=== PATIENT | female | born 1935 | race Two or more races ===

== ENCOUNTER 2018-12-08 04:25 | Inpatient (IN) | payer MEDICARE ==
[2018-12-08] VITALS (28 sets, daily range): BP systolic 85–110; BP diastolic 53–70
[~2018-12-08] VITALS: Ht 160 cm; Wt 44.9 kg
--- NOTE | 2018-12-08 04:28 | NUR ---
PT BIBRA FOR SOB FROM [facility]. PER EMS, PT WAS SATURATING IN THE 70S AND WAS PUT ON A NON-REBREATHER AND TRANSPORTED. PT AXO2. PT PUT ON THE STEAMER GUM CANDY AND PULSE OX. PT SATURATION 99% ON NON-REBREATHER. PT TACHYPNIC AND DYSPNIC. PT TACHYCARDIC ON THE MONITOR.
--- NOTE | 2018-12-08 04:29 | NUR ---
ER MD AND RT AT BEDSIDE.
--- NOTE | 2018-12-08 04:35 | NUR ---
PT REC'D ON NRB MASK 15LPM. PT PLACED ON BIPAP PER DR WATKINS REQUEST. ALARMS ARE SET AND AUDIBLE. BIPAP PLUGGED INTO RED OUTLET. AMBU BAG BEDSIDE. ABG TO BE TAKEN IN 30 MINUTES Addendum: 12/08/18 at 0513 by EMBER MONROY RT Amended: Links added.
--- NOTE | 2018-12-08 04:55 | NUR ---
EKG AT BEDSIDE.
--- NOTE | 2018-12-08 04:55 | NUR ---
ADULT HEALTH CLINICAL NURSE SPECIALIST AT BEDSIDE.
--- NOTE | 2018-12-08 05:05 | NUR ---
XRAY AT BEDSIDE.
[2018-12-08 05:11] LABS: BASOPHILS % (AUTO) 0.2 % (0.0-2.0); HEMATOCRIT 42 % (33-45); HEMOGLOBIN 12.7 g/dL (11.5-14.8); LYMPHOCYTES # (AUTO) 0.2 /CMM (0.8-4.8); LYMPHOCYTES % (AUTO) 1.4 % (20.0-44.0); MEAN CORPUSCULAR HGB CONC 30 g/dl (31.0-36.0); MEAN CORPUSCULAR VOLUME 94 fL (82-100); MONOCYTES # (AUTO) 0.9 /CMM (0.1-1.30); MONOCYTES % (AUTO) 5.3 % (2.0-12.0); NEUTROPHILS # (AUTO) 15.6 /CMM (1.8-8.9); NEUTROPHILS % (AUTO) 93.1 % (43.0-81.0); PLATELET COUNT (AUTO) 150 /CMM (150-450); RED BLOOD CELL COUNT(AUTO) 4.46 MIL/uL (4.0-5.2); WHITE BLOOD COUNT (AUTO) 16.8 K/uL (4.3-11.0)
[2018-12-08] MEDS ORDERED: CEFEPIME 1 GM VIAL ONE (05:23)
[2018-12-08 05:27] LABS: ALANINE AMINOTRANSFERASE 26 U/L (12-78); ALBUMIN 2.9 g/dL (3.4-5.0); ALKALINE PHOSPHATASE 92 U/L (46-116); ASPARTATE AMINOTRANSFERASE 21 U/L (15-37); BILIRUBIN,DIRECT 0.2 mg/dL (0.0-0.2); BILIRUBIN,TOTAL 0.8 mg/dL (0.2-1.0); CHLORIDE 108 mmol/L (98-107); CREATININE 0.8 mg/dL (0.6-1.3); GLUCOSE 129 mg/dL (74-106); POTASSIUM 4.1 mmol/L (3.5-5.1); SODIUM SERUM 148 mmol/L (136-145); TOTAL PROTEIN, SERUM 6.6 g/dL (6.4-8.2); UREA NITROGEN, BLOOD 43 mg/dL (7-18)
[2018-12-08 05:30] LABS: CARBON DIOXIDE 44 mmol/L (21-32)
[2018-12-08] MEDS ORDERED: VANCOMYCIN 1 GM in IV D5W 250 ML IV ONE (05:30)
[2018-12-08] MEDS ORDERED: CEFEPIME 1 GM in IV D5W 50 ML IV ONE (05:30)
[2018-12-08] MEDS ORDERED: methylPREDNISolone SOD SUCC 125 MG/2ML VIAL IV ONE (05:30)
[2018-12-08] MEDS ORDERED: methylPREDNISolone SOD SUCC 40 MG/ML VIAL ONE (05:34)
[2018-12-08 05:36] LABS: ABG BASE EXCESS 7.6 mmol/L; ABG OXYGEN SATURATION 99.3 % (92.0-98.5); ABG PCO2 93.1 mmHg (35.0-45.0); ABG PH 7.236 (7.350-7.450); ABG PO2 358.8 mmHg (75.0-100.0); AaDO2 261.1 mmHg; MetHb 0.6 % (0.0-1.5); O2Hb 97.7 % (94.0-97.0); SITE, ABG Right Brachial
--- NOTE | 2018-12-08 05:40 | NUR ---
bipap changes per charo and dr rooney request Addendum: 12/08/18 at 0545 by EMBER MONROY RT Amended: Links added.
[2018-12-08 05:47] LABS: APPEARANCE,URINE Slightly Cloudy (CLEAR); BILIRUBIN,URINE Negative (NEGATIVE); BLOOD, URINE Negative Ery/uL (NEGATIVE); COLOR,URINE Amber (YELLOW); KETONES,URINE Negative (NEGATIVE); LEUKOCYTE ESTERASE ,URINE Negative (NEGATIVE); NITRITE, URINE Negative (NEGATIVE); PROTEIN,URINE 100 mg/dl (NEGATIVE); UGLUCOSE Negative (NEGATIVE); UROBILINOGEN,URINE 0.2 EU/dL (0.2)
[2018-12-08] MEDS ORDERED: ASPI-1169 PO (05:56)
[2018-12-08] MEDS ORDERED: INSU100C10 SQ (05:56)
[2018-12-08] MEDS ORDERED: ACET250T9 PO (05:56)
[2018-12-08] MEDS ORDERED: LEVO25TA7 PO (05:56)
[2018-12-08] MEDS ORDERED: MAGN400T6 PO (05:56)
[2018-12-08] MEDS ORDERED: MELA3TAB70 PO (05:56)
[2018-12-08] MEDS ORDERED: CYAN50008 PO (05:56)
[2018-12-08] MEDS ORDERED: ATOR10TA PO (05:56)
[2018-12-08] MEDS ORDERED: BLOO-697 IN (05:56)
[2018-12-08] MEDS ORDERED: PRED5TAB48 PO ×2 (05:56)
[2018-12-08] MEDS ORDERED: POTA20TA83 PO (05:56)
[2018-12-08] MEDS ORDERED: FURO-144 PO (05:56)
[2018-12-08] MEDS ORDERED: ALEN70TA3 PO (05:56)
[2018-12-08] MEDS ORDERED: IPRA3AMP23 IH (05:56)
[2018-12-08] MEDS ORDERED: VANCOMYCIN 1 GM VIAL ONE (05:57)
[2018-12-08] MEDS ORDERED: ASPIRIN 300 MG/SUPP.RECT RC ONE ×2 (05:58→06:00)
[2018-12-08] MEDS ORDERED: IV NS 0.9% 1,000 ML BAG IV ONE (06:00)
--- NOTE | 2018-12-08 06:27 | NUR ---
RT AT BEDSIDE FOR ABG.
[2018-12-08 06:33] LABS: ABG BASE EXCESS 10.2 mmol/L; ABG OXYGEN SATURATION 92.7 % (92.0-98.5); ABG PCO2 78.6 mmHg (35.0-45.0); ABG PH 7.319 (7.350-7.450); ABG PO2 74.7 mmHg (75.0-100.0); AaDO2 120.1 mmHg; COHb 1.1 % (0.5-1.5); MetHb 0.5 % (0.0-1.5); O2Hb 91.2 % (94.0-97.0); SITE, ABG Right Brachial; VENT MODE, BG bipap 22/5 RR20 40%
--- NOTE | 2018-12-08 06:41 | NUR ---
PT RESTING IN BED, EASILY AROUSABLE. TOLERATING BIPAP WELL, NAD NOTED. WILL CONTINUE TO MONITOR.
[2018-12-08 06:51] LABS: BACTERIA,URINE Few /HPF (None Seen); RBC,URINE 0-2 /HPF (0-2)
[2018-12-08 06:52] LABS: SQUAMOUS EPITHELIAL CELL,UR Few /HPF (None Seen); YEAST,URINE Rare /HPF (None Seen)
[2018-12-08] MEDS: LEVOTHYROXINE SODIUM 25 MCG TABLET PO SCH (07:30)
[2018-12-08] MEDS ORDERED: ONDANSETRON HCL/PF 4 MG/2 ML VIAL IVP PRN (07:30)
[2018-12-08] MEDS ORDERED: DEXTROSE 50%-WATER 50 ML DISP.SYRIN IV PRN (07:30)
[2018-12-08] MEDS: BLOOD SUGAR DIAGNOSTIC 1 EACH STRIP IN SCH ×4 (07:30→21:54)
[2018-12-08] MEDS ORDERED: Z GUARD REMEDY 2 OZ OINT TP PRN (07:30)
[2018-12-08] MEDS ORDERED: MORPHINE SULFATE INJ 2 MG/ML DISP.SYRIN IV PRN (07:30)
--- NOTE | 2018-12-08 07:39 | NUR ---
REPORT RECEIVED FROM CALLIE ALFARO FOR SOBEIDA
--- NOTE | 2018-12-08 07:40 | NUR ---
PT RESTING IN BED, EASILY AROUSABLE. TOLERATING BIPAP WELL, NAD NOTED. KEPT WARM AND COMFORTABLE. WILL CONTINUE TO MONITOR. AWAITING BED AVAILABILITY IN ICU.
[2018-12-08] MEDS: POTASSIUM CHLORIDE 20 MEQ TAB.PRT.SR PO SCH ×2 (09:00→16:34)
[2018-12-08] MEDS: ASPIRIN 81 MG TAB.CHEW PO SCH (09:00)
[2018-12-08] MEDS: acetaZOLAMIDE 250 MG TABLET PO SCH (09:00)
[2018-12-08] MEDS: MAGNESIUM OXIDE 400 MG TABLET PO SCH ×2 (09:00→16:34)
--- NOTE | 2018-12-08 11:02 | NUR ---
REPORT GIVEN TO REINA ALFARO OF ICU
[2018-12-08] MEDS ORDERED: FEE PK DOSING 1 MIN EA MC ONE (11:32)
--- NOTE | 2018-12-08 11:38 | NUR ---
RT TRANSFERRED PT TO ICU ON NC 6L PLACED BACK ON BIPAP CONT SETTING MEPILEX PLACED NO RESP DISTRESS WILL CONT TO MONITOR Addendum: 12/08/18 at 1140 by TARYN FINLEY RT Amended: Links added.
[2018-12-08] MEDS ORDERED: Medication Not On Formulary EA (Ipratropium/Albuterol Sulfate (Duoneb 2.5-0.5 Mg/3 Ml So IH SCH (12:00)
[2018-12-08] MEDS ORDERED: PIPERACILLIN /TAZOBACTAM 3.375 G in IV D5W 50 ML IV ONE (12:00)
--- NOTE | 2018-12-08 12:00 | NUR ---
PO meds not given, pt is lethargic and on bipap.
[2018-12-08] MEDS: PANTOPRAZOLE 40 MG VIAL IV SCH (12:04)
--- NOTE | 2018-12-08 13:04 | NUR ---
received pt from ER, s/p Acute Respiratory failure s/t PNA and COPD, alert, follows commands, fatigued, V pacing, on bipap at 40% fio2, sat well, lungs partially congested, no edema, v/s stable, no pain, pt cleaned, changed and repositioned, son at the bedside.
[2018-12-08] MEDS: methylPREDNISolone SOD SUCC 125 MG/2ML VIAL IV SCH ×2 (14:16→21:00)
[2018-12-08] MEDS: IV D5/ 0.9% NACL 1,000 ML IV PRN (14:16)
[2018-12-08] MEDS: IPRATROPIUM NEB FS 0.5 MG/2.5 ML AMPUL.NEB NEB SCH ×2 (14:53→19:54)
--- NOTE | 2018-12-08 16:23 | NUR ---
pt is resting in the bed, alert, follows commands, ST, on bipap at 40% fio2, sat well, OK urine output, one BM, v/s stable, no pain, pt cleaned, changed and repositioned q2hrs.
[2018-12-08] MEDS: ALBUTEROL FS 2.5 MG/3 ML VIAL.NEB NEB SCH ×2 (17:18→19:54)
[2018-12-08] MEDS: VANCOMYCIN 500 MG in IV D5W 100 ML IV SCH (17:21)
[2018-12-08] MEDS: PIPERACILLIN /TAZOBACTAM 3.375 G in IV D5W 100 ML IV SCH (20:00)
[2018-12-08] MEDS ORDERED: IV NS 0.9% 250 ML IV ONE (20:00)
--- NOTE | 2018-12-08 20:00 | NUR ---
Received patient awake alert hard of hearing.Follows simple commands.Dx:Acute Respiratory Failure,PNA,COPD,NSTEMI,CHF.Respiration even and unlabored.On BIPAP with settings well tolerated.SPO2 100%.V-paced.Normotensive.IVF infusing to left hand site intact.Patient turned and repositioned offloading pressure points.Call light within easy reach.
--- NOTE | 2018-12-08 21:00 | NUR ---
Patient son Espinoza visiting.He said patient has a pair of hearing aids.Look into patient belongings but missing only the batteries in there.Per patient belonging list reflected with 2 hearing aids. Per Espinoza his brother took it home as instructed by day shift RNDexter and will bring in AM.
[2018-12-08] MEDS: ENOXAPARIN SODIUM 40 MG/0.4 ML DISP.SYRIN SQ SCH (21:01)
[2018-12-08] MEDS: ATORVASTATIN 10 MG TABLET PO SCH (21:38)
[2018-12-08] MEDS: INSULIN REGULAR, HUMAN 100 UNIT/ML 3 ML VIAL SQ PRN (21:58)
[2018-12-09] VITALS (40 sets, daily range): BP systolic 91–140; BP diastolic 45–74
--- NOTE | 2018-12-09 | NUR ---
Patient incontinent of stool.Perineal care and bed bath rendered.All linens changed.Turned and repositioned.
[2018-12-09] MEDS: IPRATROPIUM NEB FS 0.5 MG/2.5 ML AMPUL.NEB NEB SCH ×4 (00:41→19:44)
[2018-12-09] MEDS: ALBUTEROL FS 2.5 MG/3 ML VIAL.NEB NEB SCH ×4 (00:41→19:44)
[2018-12-09] MEDS: IV D5/ 0.9% NACL 1,000 ML IV PRN (03:15)
[2018-12-09] MEDS: PIPERACILLIN /TAZOBACTAM 3.375 G in IV D5W 100 ML IV SCH ×3 (04:00→20:14)
[2018-12-09 05:04] LABS: CALCIUM, SERUM 7.7 mg/dL (8.5-10.1); CARBON DIOXIDE 39 mmol/L (21-32); CHLORIDE 113 mmol/L (98-107); CREATININE 0.7 mg/dL (0.6-1.3); GLUCOSE 181 mg/dL (74-106); SODIUM SERUM 152 mmol/L (136-145); UREA NITROGEN, BLOOD 27 mg/dL (7-18)
[2018-12-09] MEDS: methylPREDNISolone SOD SUCC 125 MG/2ML VIAL IV SCH ×3 (05:26→21:38)
[2018-12-09] MEDS: VANCOMYCIN 500 MG in IV D5W 100 ML IV SCH ×2 (05:30→17:06)
--- NOTE | 2018-12-09 06:45 | NUR ---
Patient resting.VS remains stable.V-paced.Tolerating BIPAP.Denies pain.No distress noted. All due medications administered.Turned and repositioned.FSBS checked coverage given per SS.Will endorse to day shift RN for continuity of care.
[2018-12-09] MEDS: LEVOTHYROXINE SODIUM 25 MCG TABLET PO SCH (07:37)
[2018-12-09] MEDS: BLOOD SUGAR DIAGNOSTIC 1 EACH STRIP IN SCH ×4 (07:55→21:37)
[2018-12-09] MEDS: INSULIN REGULAR, HUMAN 100 UNIT/ML 3 ML VIAL SQ PRN ×2 (07:58→16:53)
[2018-12-09] MEDS: PANTOPRAZOLE 40 MG VIAL IV SCH (08:14)
[2018-12-09] MEDS: ASPIRIN 81 MG TAB.CHEW PO SCH (08:14)
[2018-12-09] MEDS: MAGNESIUM OXIDE 400 MG TABLET PO SCH ×2 (08:14→16:13)
[2018-12-09] MEDS: POTASSIUM CHLORIDE 20 MEQ TAB.PRT.SR PO SCH ×2 (08:14→16:13)
[2018-12-09] MEDS: acetaZOLAMIDE 250 MG TABLET PO SCH (08:14)
[2018-12-09 08:39] LABS: ABG BASE EXCESS 3.8 mmol/L; ABG OXYGEN SATURATION 94.2 % (92.0-98.5); ABG PCO2 63.4 mmHg (35.0-45.0); ABG PH 7.312 (7.350-7.450); ABG PO2 80.2 mmHg (75.0-100.0); AaDO2 59.2 mmHg; COHb 0.9 % (0.5-1.5); MetHb 0.7 % (0.0-1.5); O2Hb 92.7 % (94.0-97.0); SITE, ABG Right Radial; VENT MODE, BG NC 3L
--- NOTE | 2018-12-09 08:47 | NUR ---
received pt from shift stacker, alert, follows commands, ST, tolerates diet, f/c OK output, off of bipap since 0800, sat well, v/s stable, no pain, pt turned and repositioned.
--- NOTE | 2018-12-09 09:41 | NUR ---
RT NOTE RECEIVED PT ON BIPAP. PT PLACED ON NC AT 3L FLOW BY REINA ALFARO. PT IS AWAKE AND ALERT. NO DISTRESS NOTED AT MOMENT. AMBU BAG AT BED SIDE. WILL CONTINUE TO MONITOR. Addendum: 12/09/18 at 0943 by ILENE PENA RT Amended: Links added.
[2018-12-09] MEDS ORDERED: IV 1/2NS 1000 ML 1,000 ML IV PRN (12:30)
[2018-12-09] MEDS: GLUCERNA SHAKE 237 ML CAN PO SCH ×2 (15:58→17:11)
--- NOTE | 2018-12-09 16:09 | NUR ---
pt is resting in the bed, alert, follows commands, SR, ST, on 4L 02 sat well, v/s stable, no pain, pt cleaned, changed and repositioned q2hrs.
[2018-12-09] MEDS: ATORVASTATIN 10 MG TABLET PO SCH (21:38)
[2018-12-09] MEDS: ENOXAPARIN SODIUM 40 MG/0.4 ML DISP.SYRIN SQ SCH (21:42)
--- NOTE | 2018-12-09 22:30 | NUR ---
PLACED ON BIPAP DUE TO LOW SATS
[2018-12-10] VITALS (32 sets, daily range): BP systolic 93–130; BP diastolic 53–71
[2018-12-10] MEDS: IPRATROPIUM NEB FS 0.5 MG/2.5 ML AMPUL.NEB NEB SCH ×4 (01:02→18:31)
[2018-12-10] MEDS: ALBUTEROL FS 2.5 MG/3 ML VIAL.NEB NEB SCH ×4 (01:02→18:31)
--- NOTE | 2018-12-10 01:31 | NUR ---
INFORMED OF SBP 75, ORDERS OBTAINED
[2018-12-10] MEDS ORDERED: PHENYLEPHRINE 40 MG in IV D5W 250 ML IV PRN ×4 (02:00)
[2018-12-10] MEDS ORDERED: IV NS 0.9% 1,000 ML BAG IV ONE (02:00)
--- NOTE | 2018-12-10 02:06 | NUR ---
INFORMED OF NA BEING 152, STATED OKAY TO GIVE NS BOLUS
[2018-12-10] MEDS: PIPERACILLIN /TAZOBACTAM 3.375 G in IV D5W 100 ML IV SCH ×3 (04:09→20:35)
[2018-12-10] MEDS: methylPREDNISolone SOD SUCC 125 MG/2ML VIAL IV SCH ×3 (04:55→21:44)
[2018-12-10 05:05] LABS: ALANINE AMINOTRANSFERASE 19 U/L (12-78); ALBUMIN 1.8 g/dL (3.4-5.0); ALKALINE PHOSPHATASE 62 U/L (46-116); ASPARTATE AMINOTRANSFERASE 15 U/L (15-37); BILIRUBIN,TOTAL 0.5 mg/dL (0.2-1.0); CALCIUM, SERUM 7.8 mg/dL (8.5-10.1); CARBON DIOXIDE 36 mmol/L (21-32); CHLORIDE 113 mmol/L (98-107); CREATININE 0.6 mg/dL (0.6-1.3); GLUCOSE 164 mg/dL (74-106); PHOSPHORUS 1.5 mg/dL (2.5-4.9); POTASSIUM 3.7 mmol/L (3.5-5.1); SODIUM SERUM 151 mmol/L (136-145); TOTAL PROTEIN, SERUM 4.6 g/dL (6.4-8.2); UREA NITROGEN, BLOOD 24 mg/dL (7-18); VANCOMYCIN,TROUGH 12 ug/ml (12-20)
[2018-12-10 05:17] LABS: BASOPHILS % (AUTO) 0.2 % (0.0-2.0); HEMATOCRIT 31 % (33-45); HEMOGLOBIN 9.5 g/dL (11.5-14.8); LYMPHOCYTES # (AUTO) 0.1 /CMM (0.8-4.8); MEAN CORPUSCULAR HGB CONC 31 g/dl (31.0-36.0); MEAN CORPUSCULAR VOLUME 95 fL (82-100); MONOCYTES # (AUTO) 0.4 /CMM (0.1-1.30); MONOCYTES % (AUTO) 4.7 % (2.0-12.0); NEUTROPHILS # (AUTO) 7.8 /CMM (1.8-8.9); NEUTROPHILS % (AUTO) 94.1 % (43.0-81.0); PLATELET COUNT (AUTO) 74 /CMM (150-450); RED BLOOD CELL COUNT(AUTO) 3.27 MIL/uL (4.0-5.2); WHITE BLOOD COUNT (AUTO) 8.3 K/uL (4.3-11.0)
[2018-12-10] MEDS: VANCOMYCIN 500 MG in IV D5W 100 ML IV SCH ×2 (06:00→17:13)
[2018-12-10 06:10] LABS: LYMPHOCYTES % (MANUAL) 1 % (16-48); MONOCYTES % (MANUAL) 2 % (0-11.0); NEUTROPHILS % (MANUAL) 97 (42-76)
[2018-12-10] MEDS: NEUTRA PHOS 1 POWD.PACKET PO SCH ×2 (06:33→13:46)
--- NOTE | 2018-12-10 07:00 | NUR ---
ASKED IF SHE SLEPT WELL NODDED YES. HAD GOOD RESULTS FROM SALINE BOLUS GIVEN, RHYTHM REMAINS PACED.
[2018-12-10] MEDS: LEVOTHYROXINE SODIUM 25 MCG TABLET PO SCH (07:04)
[2018-12-10] MEDS: PANTOPRAZOLE 40 MG TABLET.DR PO SCH (07:04)
[2018-12-10] MEDS: BLOOD SUGAR DIAGNOSTIC 1 EACH STRIP IN SCH ×4 (07:05→21:45)
--- NOTE | 2018-12-10 07:17 | NUR ---
PT VERY A/A, PUT OXYGEN ON VIA NC AT 3 L
[2018-12-10] MEDS: MAGNESIUM OXIDE 400 MG TABLET PO SCH ×2 (08:14→17:12)
[2018-12-10] MEDS: POTASSIUM CHLORIDE 20 MEQ TAB.PRT.SR PO SCH ×2 (08:14→17:12)
[2018-12-10] MEDS: ASPIRIN 81 MG TAB.CHEW PO SCH (08:14)
[2018-12-10] MEDS: GLUCERNA SHAKE 237 ML CAN PO SCH ×3 (08:15→17:30)
[2018-12-10] MEDS: acetaZOLAMIDE 250 MG TABLET PO SCH (08:15)
--- NOTE | 2018-12-10 08:52 | NUR ---
received pt from shift supervisor rn, alert, follows commands, ST, on 4L NC, sat well, lungs partially congested, no edema, tolerates diet, OK urine output, v/s stable, no pain, pt turned and repositioned.
[2018-12-10] MEDS: INSULIN REGULAR, HUMAN 100 UNIT/ML 3 ML VIAL SQ PRN ×2 (11:28→22:19)
--- NOTE | 2018-12-10 16:55 | NUR ---
pt is resting in the bed, alert, follows commands, SR, ST, v/s stable, no pain, pt cleaned, changed and repositioned, family at the bedside.
[2018-12-10] MEDS: ENOXAPARIN SODIUM 40 MG/0.4 ML DISP.SYRIN SQ SCH (21:44)
[2018-12-10] MEDS: ATORVASTATIN 10 MG TABLET PO SCH (21:44)
--- NOTE | 2018-12-10 22:54 | NUR ---
RECEIVED PT ON NC. PLACED BACK ON BIPAP @1900 DO TO LOW O2 SAT AND INCREASE WOB. NOTICED REDNESS ON THE BRIDGE OF THE NOSE, SWITCH MASK TO UNDER THE NOSE MASK. MEPILEX IN PLACE. NOTIFIED ANGELINA YORK. WILL CONTINUE TO MONITOR. Addendum: 12/10/18 at 2257 by SRAVAN SANDERS RT Amended: Links added.
[2018-12-11] VITALS (41 sets, daily range): BP systolic 82–130; BP diastolic 52–71
[2018-12-11] MEDS: IPRATROPIUM NEB FS 0.5 MG/2.5 ML AMPUL.NEB NEB SCH ×4 (02:12→19:30)
[2018-12-11] MEDS: ALBUTEROL FS 2.5 MG/3 ML VIAL.NEB NEB SCH ×4 (02:12→19:30)
--- NOTE | 2018-12-11 03:35 | NUR ---
PT REQUESTED TO BE OFF BIPAP. PLACED ON 5L NC. TOLD PT IF HER O2 GOES DOWN AND START TO BE SHORT OF BREATH I WILL PUT HER BACK ON BIPAP. PT SAID YES. ANGELNIA YORK NOTIFIED.
[2018-12-11 04:43] LABS: BASOPHILS % (AUTO) 0.3 % (0.0-2.0); HEMATOCRIT 36 % (33-45); HEMOGLOBIN 11.1 g/dL (11.5-14.8); LYMPHOCYTES # (AUTO) 0.1 /CMM (0.8-4.8); LYMPHOCYTES % (AUTO) 0.9 % (20.0-44.0); MEAN CORPUSCULAR HGB CONC 31 g/dl (31.0-36.0); MEAN CORPUSCULAR VOLUME 93 fL (82-100); MONOCYTES # (AUTO) 0.6 /CMM (0.1-1.30); MONOCYTES % (AUTO) 6.2 % (2.0-12.0); NEUTROPHILS # (AUTO) 8.6 /CMM (1.8-8.9); NEUTROPHILS % (AUTO) 92.6 % (43.0-81.0); PLATELET COUNT (AUTO) 85 /CMM (150-450); RED BLOOD CELL COUNT(AUTO) 3.86 MIL/uL (4.0-5.2); WHITE BLOOD COUNT (AUTO) 9.3 K/uL (4.3-11.0)
[2018-12-11 05:04] LABS: CALCIUM, SERUM 8.2 mg/dL (8.5-10.1); CARBON DIOXIDE 35 mmol/L (21-32); CHLORIDE 110 mmol/L (98-107); CREATININE 0.5 mg/dL (0.6-1.3); GLUCOSE 98 mg/dL (74-106); PHOSPHORUS 2.2 mg/dL (2.5-4.9); SODIUM SERUM 151 mmol/L (136-145); UREA NITROGEN, BLOOD 20 mg/dL (7-18)
[2018-12-11] MEDS: PIPERACILLIN /TAZOBACTAM 3.375 G in IV D5W 100 ML IV SCH ×2 (05:35→12:46)
[2018-12-11] MEDS: methylPREDNISolone SOD SUCC 125 MG/2ML VIAL IV SCH ×3 (05:37→21:09)
[2018-12-11] MEDS: VANCOMYCIN 500 MG in IV D5W 100 ML IV SCH (05:37)
--- NOTE | 2018-12-11 05:50 | NUR ---
PT TRANSFERRED TO BED 107 IN DANIKA TELE. PT TRANSPORTED ACCORDING TO ACLS PROTOCOL. PT TOLERATED TRANSFER WELL. GAVE BEDSIDE REPORT TO RADHA ALFARO FOR CONTINUITY OF CARE.
--- NOTE | 2018-12-11 06:06 | NUR ---
PT TRANSFERRED TO 107.
--- NOTE | 2018-12-11 06:36 | NUR ---
TD RN NOTE: PT WAS TRANSFERRED FROM ICU. PT IS ALERT AND ORIENTED X2. NO APPARENT DISTRESS NOTED. DENIES PAIN AND DISCOMFORT AT THIS TIME. ON 5LPM NASAL CANNULA, SATURATING 92%. LEFT A MSG TO JONNY MANCINI ([phone]) REGARDING PATIENT'S TRANSFER. PICKARD CATH INTACT AND PATENT, DRAINING WELL. KEPT CLEAN, DRY AND COMFORTABLE. SAFETY AND FALL PRECAUTIONS OBSERVED AND MAINTAINED. WILL ENDORSE TO DAY SHIFT RN FOR CONTINUITY OF CARE.
[2018-12-11] MEDS: POTASSIUM CHLORIDE 20 MEQ TAB.PRT.SR PO SCH ×2 (08:10→16:17)
[2018-12-11] MEDS: BLOOD SUGAR DIAGNOSTIC 1 EACH STRIP IN SCH ×4 (08:10→23:35)
[2018-12-11] MEDS: ASPIRIN 81 MG TAB.CHEW PO SCH (08:10)
[2018-12-11] MEDS: PANTOPRAZOLE 40 MG TABLET.DR PO SCH (08:11)
[2018-12-11] MEDS: MAGNESIUM OXIDE 400 MG TABLET PO SCH ×2 (08:11→16:17)
[2018-12-11] MEDS: LEVOTHYROXINE SODIUM 25 MCG TABLET PO SCH (08:11)
[2018-12-11] MEDS: GLUCERNA SHAKE 237 ML CAN PO SCH ×3 (08:13→16:17)
[2018-12-11] MEDS: acetaZOLAMIDE 250 MG TABLET PO SCH (08:13)
[2018-12-11] MEDS: ACETAMINOPHEN 325 MG TABLET PO PRN (08:45)
[2018-12-11] MEDS: NEUTRA PHOS 1 POWD.PACKET PO SCH ×2 (10:00→10:48)
[2018-12-11] MEDS ORDERED: IV NS 0.45% 500 ML IV ONE (11:00)
--- NOTE | 2018-12-11 11:00 | NUR ---
RN NOTE NEUTRA-PHOS WAS NOT GIVEN BECAUSE PT UNABLE TO TOLERATE PO INTAKE, UNABLE TO SWALLOW. WILL NOTIFY .
[2018-12-11] MEDS: INSULIN REGULAR, HUMAN 100 UNIT/ML 3 ML VIAL SQ PRN ×2 (11:41→23:38)
--- NOTE | 2018-12-11 12:00 | NUR ---
RN NOTE at 1100 am pt noted to have labored breathing rate 28 bpm, HR110, and o2 saturation fluctuating to 87-94% on nc 5 l/min, pt lethargic, unable to take anything by mouth. follows few simple commandS, SVP PROGRAMMATIC TV Ricardo called and ordered stat abg, critical abg results relayed to Dr Nair, Tool Filer, he ordered to transfer pt to icu on bipap. report given to Andrea TOOL MACHINE SETUP OPERATOR for SOBEIDA.
--- NOTE | 2018-12-11 12:00 | NUR ---
WELL SURVEYING ENGINEER RECEIVED PT BY BED WITH MONITOR TO ROOM 256. REPORT RECEIVED FROM DANIKA RN. PT TRANSFERRED TO ICU FOR RESP DISTRESS. PT AROUSEABLE TO VIGOROUS STIMULATION. PLACED ON BIPAP.
[2018-12-11 12:11] LABS: ABG BASE EXCESS 7.3 mmol/L; ABG OXYGEN SATURATION 94.5 % (92.0-98.5); ABG PCO2 137.1 mmHg (35.0-45.0); ABG PH 7.098 (7.350-7.450); ABG PO2 96.1 mmHg (75.0-100.0); AaDO2 31.4 mmHg; COHb 0.8 % (0.5-1.5); MetHb 0.8 % (0.0-1.5); SITE, ABG Right Radial; VENT MODE, BG NC 5LPM
--- NOTE | 2018-12-11 14:17 | NUR ---
RN NOTE RECEIVED PT FROM GABRIEL, ON BIPAP, 25/5, RR 20, SATURATION 94%, OPENS EYES AND RESPONSES TO SIMPLE QUESTIONS. SON AT BEDSIDE. IV FLUID AND ANTIBIOTIC INFUSING, IVs IN R FA BOTH I/C/D. PICKARD DRAINING VIA GRAVITY MINIMAL URINE OUTPUT, YELLOW CLEAR. SAFETY MEASURES IN PLACE, CALL LIGHT WITHIN REACH, WILL CONTINUE TO MONITOR CLOSELY.
[2018-12-11 14:38] LABS: ABG BASE EXCESS 8.8 mmol/L; ABG OXYGEN SATURATION 94.1 % (92.0-98.5); ABG PCO2 70.3 mmHg (35.0-45.0); ABG PH 7.335 (7.350-7.450); ABG PO2 73.4 mmHg (75.0-100.0); COHb 0.3 % (0.5-1.5); MetHb 0.7 % (0.0-1.5); O2Hb 93.2 % (94.0-97.0); SITE, ABG Right Radial; VENT MODE, BG 25/5 20RR 50%
--- NOTE | 2018-12-11 14:55 | NUR ---
RN NOTE PT'S ABG DRAWN AND RESULTS NOTIFIED TO DR SAGE, HE WILL SEE THE PT SOON. WILL MONITOR PT.
[2018-12-11] MEDS ORDERED: DEXTROSE 50%-WATER 50 ML DISP.SYRIN IV PRN (16:00)
[2018-12-11] MEDS ORDERED: POTASSIUM PHOSPHATE MM 7.5 MMOL in IV D5W 100 ML IV SCH (17:00)
[2018-12-11] MEDS ORDERED: IV D5/0.45 NACL 1,000 ML IV ONE (18:00)
[2018-12-11] MEDS: MEROPENEM 1 G in IV NS 0.9% 100 ML IV SCH (19:06)
--- NOTE | 2018-12-11 19:30 | NUR ---
RN NOTE, RECEIVED PATIENT ON BIPAP, 25/5, RR 20, SATURATION 98%, A/O TO SELF OPENS EYES, NO SOB/ACUTE RESPIRATORY DISTRESS NOTED, IV FLUID AND ANTIBIOTIC , PHOSPHATE INFUSING WELL AND PATIENT TOLERATED WELL, IV ACCESS IN R FA AND LEFT HAND PATENT AND INTACT, PICKARD CATHETER IN PLACED PATENCY INTACT, DRAINING VIA GRAVITY NOTED 20ML OF YELLOW URINE NOTED IN BAG, ALL SAFETY MEASURES IN PLACE, CALL LIGHT WITHIN REACH, WILL CONTINUE TO MONITOR PATIENT CLOSELY.
--- NOTE | 2018-12-11 20:30 | NUR ---
RN NOTES, PATIENT SEEN BY PILOT TEACHER ALONA, AND PER MD PATIENT WILL REMAIN IN BIPAP FOR NOW UNTIL FURTHER ORDERS, PATIENT TOLERATED SETTINGS WELL AT THIS TIME WITH OPTIMAL O2 SAT LEVEL 98%, AWAKE AND RESPONSIVE, WILL CONTINUE TO MONITOR CLOSELY.
[2018-12-11] MEDS ORDERED: MEROPENEM 500 MG in IV NS 0.9% 50 ML IV SCH (21:00)
[2018-12-11] MEDS: ENOXAPARIN SODIUM 40 MG/0.4 ML DISP.SYRIN SQ SCH (21:10)
[2018-12-11] MEDS: ATORVASTATIN 10 MG TABLET PO SCH (22:00)
[2018-12-12] VITALS (37 sets, daily range): BP systolic 87–122; BP diastolic 50–74
[2018-12-12] MEDS: ALBUTEROL FS 2.5 MG/3 ML VIAL.NEB NEB SCH ×4 (01:50→20:07)
[2018-12-12] MEDS: IPRATROPIUM NEB FS 0.5 MG/2.5 ML AMPUL.NEB NEB SCH ×4 (01:50→20:07)
[2018-12-12] MEDS: MEROPENEM 1 G in IV NS 0.9% 100 ML IV SCH ×3 (02:33→18:11)
[2018-12-12 04:53] LABS: BASOPHILS % (AUTO) 0.5 % (0.0-2.0); HEMATOCRIT 32 % (33-45); HEMOGLOBIN 10.1 g/dL (11.5-14.8); LYMPHOCYTES # (AUTO) 0.1 /CMM (0.8-4.8); LYMPHOCYTES % (AUTO) 0.9 % (20.0-44.0); MEAN CORPUSCULAR HGB CONC 31 g/dl (31.0-36.0); MEAN CORPUSCULAR VOLUME 93 fL (82-100); MONOCYTES # (AUTO) 0.2 /CMM (0.1-1.30); MONOCYTES % (AUTO) 2.5 % (2.0-12.0); NEUTROPHILS # (AUTO) 8.5 /CMM (1.8-8.9); NEUTROPHILS % (AUTO) 96.1 % (43.0-81.0); PLATELET COUNT (AUTO) 76 /CMM (150-450); RED BLOOD CELL COUNT(AUTO) 3.46 MIL/uL (4.0-5.2); WHITE BLOOD COUNT (AUTO) 8.8 K/uL (4.3-11.0)
[2018-12-12] MEDS: methylPREDNISolone SOD SUCC 125 MG/2ML VIAL IV SCH ×3 (05:21→20:56)
[2018-12-12 05:26] LABS: CALCIUM, SERUM 7.7 mg/dL (8.5-10.1); CARBON DIOXIDE 34 mmol/L (21-32); CHLORIDE 112 mmol/L (98-107); CREATININE 0.8 mg/dL (0.6-1.3); GLUCOSE 202 mg/dL (74-106); MAGNESIUM 2.2 mg/dL (1.8-2.4); PHOSPHORUS 2.6 mg/dL (2.5-4.9); POTASSIUM 4.1 mmol/L (3.5-5.1); SODIUM SERUM 147 mmol/L (136-145); UREA NITROGEN, BLOOD 22 mg/dL (7-18)
[2018-12-12] MEDS: BLOOD SUGAR DIAGNOSTIC 1 EACH STRIP IN SCH ×4 (05:30→23:41)
[2018-12-12] MEDS: INSULIN REGULAR, HUMAN 100 UNIT/ML 3 ML VIAL SQ PRN ×2 (05:32→23:41)
--- NOTE | 2018-12-12 06:50 | NUR ---
RN NOTE, PATIENT CONTINUE ON BIPAP, 25/5, RR 20, SATURATION 94-100%, A/O TO SELF OPENS EYES, ABLE TO RESPONSIVE TO SIMPLE COMMANDS, NO SOB/ACUTE RESPIRATORY DISTRESS THROUGHOUT THE NIGHT, IV FLUID INFUSING WELL AND PATIENT TOLERATED WELL, IV ACCESS IN R FA AND LEFT HAND PATENT AND INTACT, PICKARD CATHETER IN PLACED PATENCY INTACT, DRAINING VIA GRAVITY YELLOW URINE NOTED IN BAG, ALL SAFETY MEASURES IN PLACE, CALL LIGHT WITHIN REACH, NO SIGNIFICANT CHANGE IN CONDITION DURING THE NIGHT, PER TEACHERS AIDE PATIENT WILL CONTINUE ON BIPAP TILL FURTHER ORDERS, WILL ENDORSE CONTINUITY OF CARE TO ONCOMING NURSE.
--- NOTE | 2018-12-12 07:10 | NUR ---
EDUCATION FACULTY MEMBER OPENING NOTES RECEIVED PT LYING ON BED WITH BIPAP SETTINGS.ALERT/ORIENTED X1.ON TELE HR IS 100 WITH V PACING,NO SOB AND ACUTE DISTRESS NOTED.VITAL SIGNS ARE MONITORING.FC IS IN PLACE WITH CLEAR YELLOW COLOR URINE.IV LINE IS ON RIGHT FA AND RIGHT WRIST G20,SITE IS CLEAN,DRY AND INTACT.NO INFILTRATION NOTED.SAFETY IS MAINTAINED AT ALL TIMES.BED IS IN LOW POSITION AND LOCKED.CALL LIGHT IS WITHIN REACH.WILL CONTINUE TO MONITOR THE PT CLOSELY.
[2018-12-12] MEDS ORDERED: acetaZOLAMIDE SODIUM 500 MG/VIAL VIAL IV ONE (08:00)
[2018-12-12] MEDS: LEVOTHYROXINE SODIUM 25 MCG TABLET PO SCH (08:00)
[2018-12-12] MEDS: PANTOPRAZOLE 40 MG TABLET.DR PO SCH (08:00)
[2018-12-12] MEDS: ASPIRIN 81 MG TAB.CHEW PO SCH (09:00)
[2018-12-12] MEDS: MAGNESIUM OXIDE 400 MG TABLET PO SCH ×2 (09:00→17:08)
[2018-12-12] MEDS: GLUCERNA SHAKE 237 ML CAN PO SCH ×3 (09:11→16:50)
--- NOTE | 2018-12-12 09:30 | NUR ---
DEVELOPMENTAL SERVICES WORKER NOTES ST LOBO DONE,PT CAN HAVE PUREE FOOD AND WILL REEVALUATE TOMORROW.FAMILY MADE AWARE.
--- NOTE | 2018-12-12 11:00 | NUR ---
FARM EQUIPMENT MAINTENANCE SUPERVISOR NOTES PT REPORT GIVEN TO ANGELINA DWYER FOR SOBEIDA.
[2018-12-12 11:07] LABS: ABG BASE EXCESS 7.9 mmol/L; ABG OXYGEN SATURATION 93.3 % (92.0-98.5); ABG PH 7.322 (7.350-7.450); ABG PO2 74.1 mmHg (75.0-100.0); AaDO2 78.3 mmHg; COHb 0.7 % (0.5-1.5); MetHb 0.7 % (0.0-1.5); SITE, ABG Right Radial; VENT MODE, BG NASAL CANNULA
--- NOTE | 2018-12-12 12:00 | NUR ---
ICU/RN: Pt assisted with apple sauce, poor appetite. Tires easily during meals. Aspiration precautions observed. New IV HL inserted L hand #20.
--- NOTE | 2018-12-12 14:45 | NUR ---
ICU/RN: Bed bath, hygienic care rendered. Small soft brown BM smear noted. Wound care rendered. Mepilex applied to non-blanching sacral redness. Pt tolerated well.
--- NOTE | 2018-12-12 18:00 | NUR ---
ICU/RN: Pt in bed, no distress. Breathing even and unlabored. IV abx infusing well. Safety measures and aspiration precautions in place.
--- NOTE | 2018-12-12 19:10 | NUR ---
BEHAVIORAL SPECIALIST NOTE PATIENT IS AOX1-2, PT ON 4L O2 VIA NC, NO S/SX OF RESPIRATORY DISTRESS, ON TELE V PACING SR, NO S/SX OF CARDIAC DISTRESS, PICKARD CATHETER DRAINING TO GRAVITY YELLOW URINE, SKIN KEPT CLEAN AND DRY, RFA #20G, LEFT HAND #20G WITH TKO PATENT FLUSHING WELL, SAFETY MAINTAINED AT ALL TIMES, BED IN LOW, LOCKED POSITION, CALL LIGHT WITHIN REACH, WILL CONTINUE TO MONITOR FOR ANY CHANGES IN CONDITION.
[2018-12-12] MEDS: ENOXAPARIN SODIUM 40 MG/0.4 ML DISP.SYRIN SQ SCH (20:57)
[2018-12-12] MEDS: ATORVASTATIN 10 MG TABLET PO SCH (21:30)
--- NOTE | 2018-12-12 23:42 | NUR ---
COMMUNICATION AND OUTREACH MANAGER NOTE PATIENT BS 169 NO S/SX OF HYPO/HYPERGLYCEMIA, PT IS NPO AND CURRENTLY RECEIVING SOLUMEDROL BID, NO SLIDING SCALE COVERAGE GIVEN DUE TO RISK OF HYPOGLYCEMIA.
[2018-12-13] VITALS (23 sets, daily range): BP systolic 94–126; BP diastolic 56–78
[2018-12-13] MEDS: IPRATROPIUM NEB FS 0.5 MG/2.5 ML AMPUL.NEB NEB SCH ×4 (01:36→19:58)
[2018-12-13] MEDS: ALBUTEROL FS 2.5 MG/3 ML VIAL.NEB NEB SCH ×4 (01:36→19:58)
[2018-12-13] MEDS: MEROPENEM 1 G in IV NS 0.9% 100 ML IV SCH ×3 (02:17→18:14)
[2018-12-13 04:38] LABS: BASOPHILS % (AUTO) 0.3 % (0.0-2.0); HEMATOCRIT 30 % (33-45); HEMOGLOBIN 9.7 g/dL (11.5-14.8); LYMPHOCYTES # (AUTO) 0.1 /CMM (0.8-4.8); LYMPHOCYTES % (AUTO) 0.6 % (20.0-44.0); MEAN CORPUSCULAR HGB CONC 32 g/dl (31.0-36.0); MEAN CORPUSCULAR VOLUME 91 fL (82-100); MONOCYTES # (AUTO) 0.2 /CMM (0.1-1.30); NEUTROPHILS # (AUTO) 8.6 /CMM (1.8-8.9); NEUTROPHILS % (AUTO) 97.1 % (43.0-81.0); PLATELET COUNT (AUTO) 92 /CMM (150-450); RED BLOOD CELL COUNT(AUTO) 3.35 MIL/uL (4.0-5.2); WHITE BLOOD COUNT (AUTO) 8.9 K/uL (4.3-11.0)
[2018-12-13 04:58] LABS: CALCIUM, SERUM 8.1 mg/dL (8.5-10.1); CARBON DIOXIDE 35 mmol/L (21-32); CHLORIDE 113 mmol/L (98-107); CREATININE 0.5 mg/dL (0.6-1.3); GLUCOSE 187 mg/dL (74-106); MAGNESIUM 2.1 mg/dL (1.8-2.4); POTASSIUM 4.1 mmol/L (3.5-5.1); SODIUM SERUM 150 mmol/L (136-145); UREA NITROGEN, BLOOD 21 mg/dL (7-18)
[2018-12-13] MEDS: methylPREDNISolone SOD SUCC 125 MG/2ML VIAL IV SCH ×3 (05:12→21:26)
[2018-12-13] MEDS: BLOOD SUGAR DIAGNOSTIC 1 EACH STRIP IN SCH ×4 (05:12→23:26)
[2018-12-13] MEDS: INSULIN REGULAR, HUMAN 100 UNIT/ML 3 ML VIAL SQ PRN ×4 (05:13→23:26)
--- NOTE | 2018-12-13 06:04 | NUR ---
PT TAKEN OFF BIPAP AND PLACED ON 3L NC. RN NOTIFIED.
--- NOTE | 2018-12-13 06:40 | NUR ---
VOTING MACHINE REPAIRER NOTE PT IS IN NO ACUTE DISTRESS ON 3L O2 VIA NC, DAUGHTER BROUGHT HOME HEARING AIDES STATES BROTHER WILL BRING HEARING AIDES THIS AM, PT RESTING COMFORTABLY, NO CARDIAC OR RESPIRATORY DISTRESS NOTED, PICKARD CATHETER DRAINING ERIC URINE, SAFETY MAINTAINED AT ALL TIMES, BED IN LOW LOCKED POSITION, WILL ENDORSE TO AM NURSE.
[2018-12-13] MEDS: PANTOPRAZOLE 40 MG TABLET.DR PO SCH (07:30)
[2018-12-13] MEDS: LEVOTHYROXINE SODIUM 25 MCG TABLET PO SCH (07:30)
--- NOTE | 2018-12-13 07:30 | NUR ---
RN NOTES RECEIVED PATIENT IN BED, AWAKE, A/O X 2, ABLE TO ANSWER QUESTION APPROPRIATELY. NOT ON ANY FORM OF DISTRESS. DENIES ANY KIND OF PAIN. ON BREATHING TREATMENT AT THIS TIME, SATS 90%, IV ACCESS NOTED ON THE IN R FA G 20 AND LEFT HAND G20: IN PLACE AND INTACT. PATENT ON FLUSHING. WITH PICKARD CATHETER IN PLACED, INTACT AND DRAINING WELL VIA GRAVITY TO TEA COLORED URINE. SAFETY MEASURES OBSERVED AND MAINTAINED IN PLACE, HOB ELEVATED, CALL LIGHT PLACED WITHIN EASY REACH, WILL CONTINUE TO MONITOR PATIENT CLOSELY.
[2018-12-13] MEDS: GLUCERNA SHAKE 237 ML CAN PO SCH ×3 (08:00→17:01)
[2018-12-13] MEDS: ASPIRIN 81 MG TAB.CHEW PO SCH (08:29)
[2018-12-13] MEDS: MAGNESIUM OXIDE 400 MG TABLET PO SCH ×2 (08:29→17:00)
[2018-12-13 09:44] LABS: ABG BASE EXCESS 6.6 mmol/L; ABG OXYGEN SATURATION 93.4 % (92.0-98.5); ABG PCO2 64.4 mmHg (35.0-45.0); ABG PH 7.341 (7.350-7.450); ABG PO2 76.3 mmHg (75.0-100.0); AaDO2 76.5 mmHg; COHb 0.1 % (0.5-1.5); MetHb 0.9 % (0.0-1.5); O2Hb 92.5 % (94.0-97.0); SITE, ABG Right Radial; VENT MODE, BG Nasal Cannula
--- NOTE | 2018-12-13 09:45 | NUR ---
RT ABG DONE AND RESULTS RELAYED TO RN AND DR. SLOAN, PER DR SLOAN, NO CHANGES. WILL CONTINUE TO MONITOR.
[2018-12-13] MEDS ORDERED: NEUTRA PHOS 1 POWD.PACKET PO ONE (12:00)
[2018-12-13] MEDS ORDERED: INSULIN REGULAR, HUMAN 100 UNIT/ML 3 ML VIAL SQ PRN (16:00)
[2018-12-13] MEDS: ACETAMINOPHEN 325 MG TABLET PO PRN (17:00)
--- NOTE | 2018-12-13 19:00 | NUR ---
Received patient awake,alert,answers appropriately ,oriented but hard of hearing,follows commands,moves all extremities but very weak.With O2 via nasal cannula ( BIPAP @ HS),slightly tachypneic,slight short of breath on exertion. Comfort care done ,needs attended.
--- NOTE | 2018-12-13 19:17 | NUR ---
RN NOTES ENDORSED PATIENT FOR CONTINUITY OF CARE NO ACUTE CHANGES WITHIN THE SHIFT. ON 02 VIA NC 3LPM. NO SOB NOTED. NO RESPIRATORY DISTRESS NOTED. DENIES AY PAIN. IV LINES IN PLACE. IVF INFUSING. PT CLEAN AND DRY. PT COMFORTABLE. CALL LIGHT WITHIN REACH. SAFETY MEASURES IN PLACE. HOB ELEVATED. , DAUGHTER AND GRANDDAUGHTER AT BED SIDE Addendum: 12/13/18 at 1920 by KASH RUVALCABA RN ERROR IN NOTES: DISREGARD
[2018-12-13] MEDS: ENOXAPARIN SODIUM 40 MG/0.4 ML DISP.SYRIN SQ SCH (21:26)
[2018-12-13] MEDS: ATORVASTATIN 10 MG TABLET PO SCH (21:51)
--- NOTE | 2018-12-13 22:03 | NUR ---
PT RECEIVED ON 3L NC. PT IS AWAKE ALERT NO DISTRESS. PT PLACED ON NOC BIPAP (AVAPS) @2140 SON AT BEDSIDE. SWITCH THE MASK TO UNDER THE NOSE. BIPAP ALARMS SET AND AUDIBLE. AMBU BAG AT BEDSIDE. WILL CONTINUE TO MONITOR. RN NOTIFIED. Addendum: 12/13/18 at 2205 by SRAVAN SANDERS RT Amended: Links added.
--- NOTE | 2018-12-13 22:30 | NUR ---
Report given to Norman
--- NOTE | 2018-12-13 23:36 | NUR ---
TD RN NOTES RECEIVED PT ON BED. SLEEPING ON BIPAP SETTING SATURATING WELL. ON TELE MONITOR VPACING. IV ACCESS ON RFA AND LEFT HAND G 20. PATENT AND INTACT. HEAD OF BED ELEVATED. SIDE RAILS UP. CALL LIGHT WITHIN REACH. BED ALARM ON. WILL CONTINUE TO MONITOR PT CLOSELY.
[2018-12-14] VITALS: BP 113/71
[2018-12-14] MEDS: ALBUTEROL FS 2.5 MG/3 ML VIAL.NEB NEB SCH ×4 (01:04→20:35)
[2018-12-14] MEDS: IPRATROPIUM NEB FS 0.5 MG/2.5 ML AMPUL.NEB NEB SCH ×4 (01:04→20:35)
[2018-12-14 04:00] VITALS: BP 119/68
[2018-12-14] MEDS: methylPREDNISolone SOD SUCC 125 MG/2ML VIAL IV SCH ×2 (04:03→13:16)
[2018-12-14] MEDS: MEROPENEM 1 G in IV NS 0.9% 100 ML IV SCH ×3 (04:04→18:19)
--- NOTE | 2018-12-14 05:41 | NUR ---
PT OFF NOC BIPAP. PLACED ON 3L NC. RN NOTIFIED.
[2018-12-14] MEDS: BLOOD SUGAR DIAGNOSTIC 1 EACH STRIP IN SCH ×4 (05:59→23:03)
[2018-12-14 06:41] LABS: BASOPHILS % (AUTO) 0.1 % (0.0-2.0); HEMATOCRIT 31 % (33-45); HEMOGLOBIN 10.1 g/dL (11.5-14.8); LYMPHOCYTES # (AUTO) 0.1 /CMM (0.8-4.8); MEAN CORPUSCULAR HGB CONC 32 g/dl (31.0-36.0); MEAN CORPUSCULAR VOLUME 90 fL (82-100); MONOCYTES # (AUTO) 0.2 /CMM (0.1-1.30); MONOCYTES % (AUTO) 2.2 % (2.0-12.0); NEUTROPHILS # (AUTO) 9.3 /CMM (1.8-8.9); NEUTROPHILS % (AUTO) 96.7 % (43.0-81.0); PLATELET COUNT (AUTO) 98 /CMM (150-450); WHITE BLOOD COUNT (AUTO) 9.6 K/uL (4.3-11.0)
--- NOTE | 2018-12-14 06:48 | NUR ---
TD RN NOTES PAGED RT FOR PT 86% ON NASAL CANNULA 5LPM. NO RESPIRATORY DISTRESS.
--- NOTE | 2018-12-14 06:53 | NUR ---
TD RN NOTES PAGED MOTION AND TIME STUDY TEACHER, FOR ABG ORDER PER RT RECOMMENDATION. AWAITING ORDERS.
[2018-12-14 06:57] LABS: CARBON DIOXIDE 34 mmol/L (21-32); CHLORIDE 113 mmol/L (98-107); CREATININE 0.5 mg/dL (0.6-1.3); GLUCOSE 132 mg/dL (74-106); PHOSPHORUS 1.5 mg/dL (2.5-4.9); POTASSIUM 4.5 mmol/L (3.5-5.1); SODIUM SERUM 149 mmol/L (136-145); UREA NITROGEN, BLOOD 25 mg/dL (7-18)
--- NOTE | 2018-12-14 07:10 | NUR ---
DANIKA RN OPENING NOTES RECEIVED REPORT FROM PM NURSE. PT ON BED.ON O2 VIA 3LNASAL CANULA,SATURATING 97%WITH BREATHING TREATMENT.MODERATE SOB NOTED.RT IN ROOM.ON TELE MONITOR V PACING WITH ST 112. IV ACCESS ON RFA AND LEFT HAND G 20. PATENT AND INTACT. F/C DRAINING DARK YELLOW URINE.HEAD OF BED ELEVATED. SIDE RAILS UPX3. CALL LIGHT WITHIN REACH. BED ALARM ON.BED IS LOW AND IN LOCKED POSITION. WILL CONTINUE TO MONITOR .
[2018-12-14] MEDS: LEVOTHYROXINE SODIUM 25 MCG TABLET PO SCH (07:46)
[2018-12-14] MEDS: PANTOPRAZOLE 40 MG TABLET.DR PO SCH (07:46)
[2018-12-14 07:54] LABS: ABG BASE EXCESS 9.7 mmol/L; ABG OXYGEN SATURATION 90.8 % (92.0-98.5); ABG PH 7.418 (7.350-7.450); ABG PO2 62.4 mmHg (75.0-100.0); COHb 0.4 % (0.5-1.5); MetHb 1.1 % (0.0-1.5); O2Hb 89.4 % (94.0-97.0); SITE, ABG Right Brachial; VENT MODE, BG NASAL CANNULA
[2018-12-14 08:00] VITALS: BP 142/65
[2018-12-14] MEDS: GLUCERNA SHAKE 237 ML CAN PO SCH ×3 (08:01→17:38)
--- NOTE | 2018-12-14 08:10 | NUR ---
DANIKA RN NOTE STAT ABG DONE BECAUSE OF SOB.PATIENT AXOX4.CONTINUE TO MONITOR PATIENT.
[2018-12-14] MEDS: ASPIRIN 81 MG TAB.CHEW PO SCH (08:55)
[2018-12-14] MEDS: MAGNESIUM OXIDE 400 MG TABLET PO SCH ×2 (08:55→16:44)
--- NOTE | 2018-12-14 09:10 | NUR ---
DANIKA RN NOTE SEEN BY ,UPDATED ABOUT PATIENT CONDITION WITH ABG RESULT.WILL CONTINUE TO MONITOR.
[2018-12-14] MEDS ORDERED: POTASSIUM PHOSPHATE MM 15 MMOL in IV D5W 250 ML IV ONE (11:30)
[2018-12-14 12:00] VITALS: BP_SYST 139; BP_DIAS 75; BP_DIAS 79
--- NOTE | 2018-12-14 12:00 | NUR ---
DANIKA RN NOTE SEEN BY ,UPDATED ABOUT PATIENT CONDITION WITH LABS.GOT NEW ORDERS.WILL CONTINUE TO MONITOR.
--- NOTE | 2018-12-14 12:30 | NUR ---
DANIKA RN NOTE BS-160,INSULIN NOT GIVEN ,POOR PO INTAKE 30%.
[2018-12-14] MEDS: Potassium Phosphate meq 11 MEQ in IV NS 0.9% 100 ML IV SCH ×2 (13:16→17:39)
[2018-12-14] MEDS ORDERED: FUROSEMIDE 40 MG/4 ML VIAL IV ONE (15:30)
--- NOTE | 2018-12-14 15:34 | NUR ---
DANIKA RN NOTE PATIENT HAD TACHYPNEA,RR 30-34, MADE AWARE.GOT NEW ORDER FOR C XRAY.RELAYED RESULT OF C XRAY TO GOT NEW ORDER FOR LASIX 40MG IVP.WILL CONTINUE TO MONITOR.
[2018-12-14 16:00] VITALS: BP 112/61
[2018-12-14] MEDS: INSULIN REGULAR, HUMAN 100 UNIT/ML 3 ML VIAL SQ PRN ×2 (17:55→23:05)
--- NOTE | 2018-12-14 19:03 | NUR ---
DANIKA RN CLOSING NOTES PT ON BED.ON O2 VIA 3LNASAL CANULA,SATURATING 94%.MILD SOB NOTED.ON TELE MONITOR V PACING WITH ST 108. IV ACCESS ON RFA AND LEFT HAND G 20. PATENT AND INTACT. F/C DRAINING CLEAR YELLOW URINE.HEAD OF BED ELEVATED. SIDE RAILS UPX3. CALL LIGHT WITHIN REACH. BED ALARM ON.BED IS LOW AND IN LOCKED POSITION. GOT NEW ORDER FOR THORACENTESIS.CALL MADE TO JONNY GUERRA ,LEFT MESSAGE.WAITING TO CALL BACK.ENDORSED TO PM NURSE FOR SOBEIDA.
--- NOTE | 2018-12-14 19:11 | NUR ---
TD RN NOTES RECEIVED PT ON BED. SLEEPING, ON TELE MONITOR VPACING 108HR. ON NASAL CANNULA 3LPM SATURATING 91%. NO RESPIRATORY DISTRESS NOTED. F/C DRAINING YELLOW URINE. IV ACCESS ON RFA G 20, LEFT HAND G 20 PATENT AND INTACT. HEAD OF BED ELEVATED. SIDE RAILS UP. CALL LIGHT WITHIN REACH. BED ALARM ON. WILL CONTINUE TO MONITOR PT CLOSELY.
[2018-12-14 20:00] VITALS: BP 109/64
--- NOTE | 2018-12-14 20:37 | NUR ---
TD RN NOTES PT PLACED ON BIPAP. RT AT BEDSIDE.
[2018-12-14] MEDS: ATORVASTATIN 10 MG TABLET PO SCH (21:46)
[2018-12-15] VITALS (9 sets, daily range): BP systolic 94–128; BP diastolic 56–68
[2018-12-15] MEDS: IPRATROPIUM NEB FS 0.5 MG/2.5 ML AMPUL.NEB NEB SCH ×4 (01:00→19:33)
[2018-12-15] MEDS: ALBUTEROL FS 2.5 MG/3 ML VIAL.NEB NEB SCH ×4 (01:00→19:33)
--- NOTE | 2018-12-15 01:08 | NUR ---
RT NOTE PT RECEIVED ON 3L NC. PT IS AWAKE ALERT NO DISTRESS. PT PLACED ON NOC BIPAP (AVAPS) PER MD ORDER. DAUGHTER AT BEDSIDE. SWITCH THE MASK TO UNDER THE NOSE. BIPAP ALARMS SET AND AUDIBLE. AMBU BAG AT BEDSIDE. WILL CONTINUE TO MONITOR. Addendum: 12/15/18 at 0109 by ORACIO PENN RT Amended: Links added.
[2018-12-15] MEDS: MEROPENEM 1 G in IV NS 0.9% 100 ML IV SCH ×3 (02:06→18:41)
[2018-12-15] MEDS: BLOOD SUGAR DIAGNOSTIC 1 EACH STRIP IN SCH ×4 (05:28→23:49)
[2018-12-15 06:56] LABS: BASOPHILS % (AUTO) 0.1 % (0.0-2.0); EOSINOPHILS % (AUTO) 0.1 % (0.0-6.0); HEMATOCRIT 35 % (33-45); HEMOGLOBIN 11.1 g/dL (11.5-14.8); LYMPHOCYTES # (AUTO) 0.2 /CMM (0.8-4.8); LYMPHOCYTES % (AUTO) 1.6 % (20.0-44.0); MEAN CORPUSCULAR HGB CONC 32 g/dl (31.0-36.0); MEAN CORPUSCULAR VOLUME 92 fL (82-100); MONOCYTES # (AUTO) 0.4 /CMM (0.1-1.30); NEUTROPHILS # (AUTO) 10.4 /CMM (1.8-8.9); NEUTROPHILS % (AUTO) 94.2 % (43.0-81.0); PLATELET COUNT (AUTO) 74 /CMM (150-450); RED BLOOD CELL COUNT(AUTO) 3.77 MIL/uL (4.0-5.2)
[2018-12-15 07:14] LABS: CALCIUM, SERUM 8.5 mg/dL (8.5-10.1); CARBON DIOXIDE 37 mmol/L (21-32); CHLORIDE 110 mmol/L (98-107); CREATININE 0.5 mg/dL (0.6-1.3); GLUCOSE 119 mg/dL (74-106); POTASSIUM 4.5 mmol/L (3.5-5.1); SODIUM SERUM 150 mmol/L (136-145); UREA NITROGEN, BLOOD 28 mg/dL (7-18)
--- NOTE | 2018-12-15 07:18 | NUR ---
TD RN NOTES NO RESPIRATORY DISTRESS NOTED THRU THE SHIFT. ENDORSED TO THE AM NURSE ABOUT POST THORACENTESIS ORDERS.
[2018-12-15] MEDS: GLUCERNA SHAKE 237 ML CAN PO SCH ×3 (08:00→17:53)
--- NOTE | 2018-12-15 08:00 | NUR ---
DANIKA RN NOTES RECEIVED PT IN BED, A/O X3, ON TELE MONITOR V PACING HR 114, PT HAS F/C TO GRAVITY, YELLOW COLOR, FED BY CELL SUPPORT OPERATOR, ATE 25%, PT HAS AIR MATTRESS FOR SKIN MANAGEMENT, WITH BOTH LEG DVT PUMP, NOTED PT BECAME DESATURATED, RT CALLED, SATURATION 88% ON NC INCREASED TO 4L, PT SCHEDULED THORACENTESIS TODAY, BED AT LOWEST AND LOCKED POSITION, SAFETY MEASURE OBSERVED, WILL CONTINUE TO MONITOR
[2018-12-15 08:47] LABS: LYMPHOCYTES % (MANUAL) 4 % (16-48); MONOCYTES % (MANUAL) 2 % (0-11.0); NEUTROPHILS % (MANUAL) 94 (42-76)
--- NOTE | 2018-12-15 09:00 | NUR ---
marshall rn note pt at bedside, unable to do pt for patient, patient has sob ,hr 114, will f\u
[2018-12-15] MEDS: LEVOTHYROXINE SODIUM 25 MCG TABLET PO SCH (09:15)
[2018-12-15] MEDS: methylPREDNISolone SOD SUCC 40 MG/ML VIAL IV SCH (09:15)
[2018-12-15] MEDS: MAGNESIUM OXIDE 400 MG TABLET PO SCH ×2 (09:16→17:03)
[2018-12-15] MEDS: PANTOPRAZOLE 40 MG TABLET.DR PO SCH (09:16)
--- NOTE | 2018-12-15 09:51 | NUR ---
DANIKA RN NOTE SEEN BY DR GIBSON AWARE THAT LISBETH HAS ON 4L NC SAT 88% ORDERED ABG STAT ,ORDER CARRIED OUT Addendum: 12/15/18 at 1036 by GAEL QUINTERO RN DR ANGELO AWARE ABG RESULT NO NEW ORDER AT [facility]
[2018-12-15 10:20] LABS: ABG BASE EXCESS 13.1 mmol/L; ABG OXYGEN SATURATION 91.5 % (92.0-98.5); ABG PCO2 54.4 mmHg (35.0-45.0); ABG PO2 63.7 mmHg (75.0-100.0); AaDO2 129.9 mmHg; COHb 0.4 % (0.5-1.5); MetHb 0.6 % (0.0-1.5); O2Hb 90.6 % (94.0-97.0); SITE, ABG Right Brachial
[2018-12-15] MEDS: ASPIRIN 81 MG TAB.CHEW PO SCH (10:21)
[2018-12-15] MEDS: INSULIN REGULAR, HUMAN 100 UNIT/ML 3 ML VIAL SQ PRN ×3 (13:06→23:53)
--- NOTE | 2018-12-15 15:14 | NUR ---
DANIKA RN NOTE PER BRAYAN ALFARO DIAMOND CLEAVER OK TO PLACE MID LINE .ORDER CARRIED OUT
--- NOTE | 2018-12-15 15:51 | NUR ---
DANIKA RN NOTE MID LINE INSERTED ORDERED BY PICC LINE NURSE, THORACENTESIS LT LUNG DONE ORDERED 500 ML OF FLUIDS REMOVED
--- NOTE | 2018-12-15 15:56 | NUR ---
DANIKA RN NOTE S/P THORACENTESIS NO COMPLAIN OF DISCOMFORT, SOB, OR PAIN CXR DONE ORDERED WILL MONITOR CLOSELY
--- NOTE | 2018-12-15 16:48 | NUR ---
marshall rn note spacemen from thoracentesis sent to lab, patient up on chair by pt ,all needs attended , daughter at bedside
--- NOTE | 2018-12-15 18:17 | NUR ---
marshall rn note still up on chair per daughter request, no sob noted having dinner , not in distress. all needs attended Addendum: 12/15/18 at 1903 by GAEL QUINTERO RN ASSISTED TO BSC, ABLE TO MAKE BM KEEP, CLEAN ND DRY
--- NOTE | 2018-12-15 20:22 | NUR ---
DANIKA RN NOTES RECEIVED PT IN BED, A/O X3, ON TELE MONITOR V PACING HR ST 98, PT HAS F/C TO GRAVITY, YELLOW COLOR, PT HAS AIR MATTRESS FOR SKIN MANAGEMENT, WITH BOTH LEG DVT PUMP, NOTED PT WITH NOCTURNAL BIPAP TO, PT S/P THORACENTESIS TODAY, WILL CONT' TO MONITOR. BED AT LOWEST AND LOCKED POSITION, SAFETY MEASURE OBSERVED, WILL CONTINUE TO MONITOR
[2018-12-15] MEDS: ATORVASTATIN 10 MG TABLET PO SCH (21:34)
[2018-12-16 00:26] VITALS: BP 97/58
[2018-12-16] MEDS: ALBUTEROL FS 2.5 MG/3 ML VIAL.NEB NEB SCH ×4 (00:55→19:31)
[2018-12-16] MEDS: IPRATROPIUM NEB FS 0.5 MG/2.5 ML AMPUL.NEB NEB SCH ×4 (00:55→19:31)
[2018-12-16 04:00] VITALS: BP 123/73
[2018-12-16] MEDS: MEROPENEM 1 G in IV NS 0.9% 100 ML IV SCH ×2 (04:08→10:51)
[2018-12-16] MEDS: BLOOD SUGAR DIAGNOSTIC 1 EACH STRIP IN SCH ×3 (05:22→18:13)
[2018-12-16 06:28] LABS: BASOPHILS % (AUTO) 0.2 % (0.0-2.0); EOSINOPHILS % (AUTO) 0.2 % (0.0-6.0); HEMATOCRIT 31 % (33-45); HEMOGLOBIN 10.1 g/dL (11.5-14.8); LYMPHOCYTES # (AUTO) 0.2 /CMM (0.8-4.8); LYMPHOCYTES % (AUTO) 1.7 % (20.0-44.0); MEAN CORPUSCULAR HGB CONC 32 g/dl (31.0-36.0); MEAN CORPUSCULAR VOLUME 91 fL (82-100); MONOCYTES # (AUTO) 0.3 /CMM (0.1-1.30); MONOCYTES % (AUTO) 2.8 % (2.0-12.0); NEUTROPHILS # (AUTO) 9.7 /CMM (1.8-8.9); NEUTROPHILS % (AUTO) 95.1 % (43.0-81.0); PLATELET COUNT (AUTO) 120 /CMM (150-450); RED BLOOD CELL COUNT(AUTO) 3.45 MIL/uL (4.0-5.2); WHITE BLOOD COUNT (AUTO) 10.2 K/uL (4.3-11.0)
--- NOTE | 2018-12-16 06:35 | NUR ---
DANIKA RN NOTES ENDORSED PT IN BED, A/O X3, ON TELE MONITOR V PACING HR ST 98, PT HAS F/C TO GRAVITY, 600 CC O/P YELLOW COLOR, PT HAS AIR MATTRESS FOR SKIN MANAGEMENT, WITH BOTH LEG DVT PUMP, NOTED PT WITH NOCTURNAL BIPAP TO, PT S/P THORACENTESIS YESTERDAY, WILL CONT' TO MONITOR. BED AT LOWEST AND LOCKED POSITION, SAFETY MEASURE OBSERVED, WILL CONTINUE TO MONITOR
[2018-12-16 07:00] LABS: CALCIUM, SERUM 8.4 mg/dL (8.5-10.1); CARBON DIOXIDE 39 mmol/L (21-32); CHLORIDE 107 mmol/L (98-107); CREATININE 0.5 mg/dL (0.6-1.3); GLUCOSE 122 mg/dL (74-106); MAGNESIUM 1.9 mg/dL (1.8-2.4); PHOSPHORUS 1.8 mg/dL (2.5-4.9); POTASSIUM 4.3 mmol/L (3.5-5.1); SODIUM SERUM 147 mmol/L (136-145); UREA NITROGEN, BLOOD 22 mg/dL (7-18)
--- NOTE | 2018-12-16 07:30 | NUR ---
RN NOTES RECEIVED PATIENT IN BED, AWAKE, A/O X 2, ABLE TO ANSWER QUESTION APPROPRIATELY. NOT ON ANY FORM OF DISTRESS. DENIES ANY KIND OF PAIN. ON BREATHING TREATMENT AT THIS TIME, SATS 93%, V PACING ON THE MONITOR HR ON THE 90'S. MIDLINE ON THE RA AND LEFT HAND G20: IN PLACE AND INTACT. PATENT ON FLUSHING. DRESSING CDI. PICKARD CATHETER IN PLACED, INTACT AND DRAINING WELL VIA GRAVITY TO YELLOW COLORED URINE. SAFETY MEASURES OBSERVED AND MAINTAINED IN PLACE, HOB ELEVATED, CALL LIGHT PLACED WITHIN EASY REACH, WILL CONTINUE TO MONITOR PATIENT CLOSELY.
[2018-12-16 08:00] VITALS: BP 99/59
[2018-12-16] MEDS: MAGNESIUM OXIDE 400 MG TABLET PO SCH ×2 (08:49→17:05)
[2018-12-16] MEDS: methylPREDNISolone SOD SUCC 40 MG/ML VIAL IV SCH (08:49)
[2018-12-16] MEDS: LEVOTHYROXINE SODIUM 25 MCG TABLET PO SCH (08:49)
[2018-12-16] MEDS: ASPIRIN 81 MG TAB.CHEW PO SCH (08:49)
[2018-12-16] MEDS: PANTOPRAZOLE 40 MG TABLET.DR PO SCH (08:49)
[2018-12-16] MEDS: GLUCERNA SHAKE 237 ML CAN PO SCH ×3 (08:50→17:06)
[2018-12-16 12:00] VITALS: BP 110/63
[2018-12-16] MEDS: INSULIN REGULAR, HUMAN 100 UNIT/ML 3 ML VIAL SQ PRN ×2 (12:39→18:17)
[2018-12-16] MEDS ORDERED: NEUTRA PHOS 1 POWD.PACKET PO ONE (14:30)
[2018-12-16 16:00] VITALS: BP_SYST 114; BP_DIAS 62; BP_DIAS 63
--- NOTE | 2018-12-16 19:24 | NUR ---
RN NOTES ENDORSED PATIENT FOR CONTINUITY OF CARE. NO ACUTE CHANGES WITHIN THE SHIFT. NO SOB NOTED. NO RESPIRATORY DISTRESS NOTED. DENIES AY PAIN. IV LINES IN PLACE. IVF INFUSING. PT CLEAN AND DRY. PT COMFORTABLE. CALL LIGHT WITHIN REACH. SAFETY MEASURES IN PLACE. HOB ELEVATED.
[2018-12-16 20:00] VITALS: BP 98/53
--- NOTE | 2018-12-16 20:17 | NUR ---
TELE1/RN RECEIVE PATIENT AWAKE AND ORIENTED, COMFORTABLE, NO DISTRESS NOTED, NO C/.O PAIN, CALL LIGHT IN REACH. FALL PRECAUTION, INSTRUCTED TO CALL FOR ANY ASSISTANCE NEEDED. WILL MONITOR.
[2018-12-16] MEDS: ATORVASTATIN 10 MG TABLET PO SCH (21:54)
[2018-12-17] VITALS: BP 118/61
[2018-12-17] MEDS: BLOOD SUGAR DIAGNOSTIC 1 EACH STRIP IN SCH ×3 (00:47→12:29)
--- NOTE | 2018-12-17 00:47 | NUR ---
TELE1/RN PATIENT IS SLEEPING AT THIS, BIPAP ON, APPEAR COMFORTABLE, NO SIGNS OF DISTRESS NOTED, CALL LIGHT IN REACH, WILL CONTINUE TO MONITOR.
[2018-12-17] MEDS: ALBUTEROL FS 2.5 MG/3 ML VIAL.NEB NEB SCH ×3 (01:35→13:48)
[2018-12-17] MEDS: IPRATROPIUM NEB FS 0.5 MG/2.5 ML AMPUL.NEB NEB SCH ×3 (01:35→13:48)
--- NOTE | 2018-12-17 01:39 | NUR ---
TELE1/RN ACCU CHECK BLOOD SUGAR 187, DID NOT GIVE INSULIN BECAUSE PATIENT IS NOT EATING WELL.
[2018-12-17 03:52] VITALS: BP 120/69
--- NOTE | 2018-12-17 06:17 | NUR ---
TELE1/RN PATIENT IS AWAKE, COMFORTABLE, NO SIGNS OF DISTRESS NOTED, CALL LIGHT IN REACH. ALL NEEDS ATTENDED AT THIS TIME, WILL CONTINUE TO MONITOR.
--- NOTE | 2018-12-17 07:30 | NUR ---
INITIAL: PT IN BED, A/O X3, ON TELE MONITOR V PACING HR 103ST 98, PT HAS F/C TO GRAVITY, YELLOW COLOR, PT HAS AIR MATTRESS FOR SKIN MANAGEMENT, WITH BOTH LEG DVT PUMP, NOTED PT WITH NOCTURNAL ON NC AT 2 LPM, PT S/P THORACENTESIS YESTERDAY, WILL CONT' TO MONITOR. BED AT LOWEST AND LOCKED POSITION, SAFETY MEASURE OBSERVED, WILL CONTINUE TO MONITOR
[2018-12-17 07:36] LABS: EOSINOPHILS % (AUTO) 0.4 % (0.0-6.0); HEMATOCRIT 29 % (33-45); HEMOGLOBIN 9.6 g/dL (11.5-14.8); LYMPHOCYTES # (AUTO) 0.2 /CMM (0.8-4.8); LYMPHOCYTES % (AUTO) 1.9 % (20.0-44.0); MEAN CORPUSCULAR HGB CONC 33 g/dl (31.0-36.0); MEAN CORPUSCULAR VOLUME 90 fL (82-100); MONOCYTES # (AUTO) 0.3 /CMM (0.1-1.30); MONOCYTES % (AUTO) 3.4 % (2.0-12.0); NEUTROPHILS # (AUTO) 9.1 /CMM (1.8-8.9); NEUTROPHILS % (AUTO) 94.3 % (43.0-81.0); PLATELET COUNT (AUTO) 144 /CMM (150-450); RED BLOOD CELL COUNT(AUTO) 3.25 MIL/uL (4.0-5.2); WHITE BLOOD COUNT (AUTO) 9.6 K/uL (4.3-11.0)
[2018-12-17 07:46] LABS: CALCIUM, SERUM 8.3 mg/dL (8.5-10.1); CARBON DIOXIDE 37 mmol/L (21-32); CHLORIDE 106 mmol/L (98-107); CREATININE 0.4 mg/dL (0.6-1.3); GLUCOSE 95 mg/dL (74-106); MAGNESIUM 1.8 mg/dL (1.8-2.4); PHOSPHORUS 1.9 mg/dL (2.5-4.9); POTASSIUM 4.8 mmol/L (3.5-5.1); SODIUM SERUM 144 mmol/L (136-145); UREA NITROGEN, BLOOD 22 mg/dL (7-18)
--- NOTE | 2018-12-17 07:53 | NUR ---
RT NOTE PT FOUND OFF BIPAP. PT AWAKE AND ALERT. NO DISTRESS NOTED. AMBU BAG AT BED SIDE. BIPAP AT BED SIDE. Addendum: 12/17/18 at 0754 by ILENE PENA RT Amended: Links added.
[2018-12-17] MEDS: LEVOTHYROXINE SODIUM 25 MCG TABLET PO SCH (07:57)
[2018-12-17] MEDS: PANTOPRAZOLE 40 MG TABLET.DR PO SCH (07:57)
[2018-12-17 08:00] VITALS: BP 117/65
[2018-12-17] MEDS: GLUCERNA SHAKE 237 ML CAN PO SCH ×2 (08:16→12:29)
[2018-12-17] MEDS: ASPIRIN 81 MG TAB.CHEW PO SCH (08:45)
[2018-12-17] MEDS: MAGNESIUM OXIDE 400 MG TABLET PO SCH (08:45)
[2018-12-17] MEDS: methylPREDNISolone SOD SUCC 40 MG/ML VIAL IV SCH (08:45)
[2018-12-17] MEDS ORDERED: K PHOS NEUTRAL 250 MG TABLET PO ONE (11:30)
[2018-12-17 12:00] VITALS: BP 105/60
--- NOTE | 2018-12-17 13:30 | NUR ---
CALLED FOR REPORT RN TO RN AT [facility] [phone] spoke with ANGELINA Jackson WHO stated she will call back for report.
--- NOTE | 2018-12-17 14:54 | NUR ---
DAUGHTER YANET VISITING PT WHO STATES SHE IS A TRUSTEE OF PT AND HAS [employer] TELEPHONE :
[2018-12-17 16:00] VITALS: BP 108/67
--- NOTE | 2018-12-17 16:00 | NUR ---
DEPARTURE: PT LEAVING WITH [facility] RIG #[id number] TO [facility] UNIT ROOM 41-B RN REPORT GIVEN TO NAYA. VITAL SIGNS HR-110, R/R; 16, SATURATION 98% ON 3 LPM NC, TEMPERATURE : 97.8 URINE OUT PUT 450 ML PT GOING WITH RIGHT MID LINE AN PICKARD
== END 2018-12-17 16:18 | disposition short-term general hospital (02) | DRG 193 ==
LOC: ER 04:28 → ICU 10:54 → TELE1 12-11 05:50 → MEDSG1 12-11 11:36 → TELE1 12-11 11:39 → ICU 12-11 11:50 → TELE-TD 12-13 18:36 → MEDSG1 12-16 09:02 → TELE1 12-16 09:07 → MEDSG1 12-17 15:18
PROVIDERS: ADMIT Nurse Practitioner Acute Care; ATTEND Hospitalist
PROC: 5A09357 Assistance with Respiratory Ventilation, Less than 24 Consecutive Hours, Continuous Positive Airway Pressure (ICD-10-PCS; principal; 2018-12-08)
PROC: 0W9B3ZZ Drainage of Left Pleural Cavity, Percutaneous Approach (ICD-10-PCS; 2018-12-15)
PROC: 05H533Z Insertion of Infusion Device into Right Subclavian Vein, Percutaneous Approach (ICD-10-PCS; 2018-12-15)
PROC: B546ZZA Ultrasonography of Right Subclavian Vein, Guidance (ICD-10-PCS; 2018-12-15)
DX: J15.9 Unspecified bacterial pneumonia (principal); J96.02 Acute respiratory failure with hypercapnia; I21.A1 Myocardial infarction type 2; E43 Unspecified severe protein-calorie malnutrition; N17.0 Acute kidney failure with tubular necrosis; J96.21 Acute and chronic respiratory failure with hypoxia; J96.22 Acute and chronic respiratory failure with hypercapnia; E87.0 Hyperosmolality and hypernatremia; J84.9 Interstitial pulmonary disease, unspecified; Z68.1 Body mass index [BMI] 19.9 or less, adult; J44.0 Chronic obstructive pulmonary disease with (acute) lower respiratory infection; J44.1 Chronic obstructive pulmonary disease with (acute) exacerbation; E03.9 Hypothyroidism, unspecified; E11.65 Type 2 diabetes mellitus with hyperglycemia; D64.9 Anemia, unspecified; D69.6 Thrombocytopenia, unspecified; E83.39 Other disorders of phosphorus metabolism; E86.0 Dehydration; I25.10 Atherosclerotic heart disease of native coronary artery without angina pectoris; Z95.1 Presence of aortocoronary bypass graft; Z95.2 Presence of prosthetic heart valve; M06.9 Rheumatoid arthritis, unspecified; Z85.43 Personal history of malignant neoplasm of ovary; Z95.0 Presence of cardiac pacemaker; E88.09 Other disorders of plasma-protein metabolism, not elsewhere classified; I50.9 Heart failure, unspecified
CPT/HCPCS: 36415; 36569; 36600; 71045-TC; 76942-TC; 80048-TC; 80053-TC; 80061-TC; 80076-TC; 80202-TC; 81000-TC; 82803-TC; 82962-TC; 83605-TC; 83735-TC; 83880; 84100-TC; 84439-TC; 84443-TC; 84480; 84484-TC; 85025-TC; 85730-TC; 87040-TC; 87070-TC; 87075-TC; 87081-TC; 87086-TC; 88305-TC; 88312-TC; 88313-TC; 88342; 89051-TC; 92526; 92611-TC; 93307-TC; 94660; 94760-TC; 94762-TC; 94799-TC; 99082-TC; A4216; A6402; C9113; G0378; J0692; J1120; J1650; J1815; J1940; J2185; J2543; J2920; J2930; J3370; J3490; J7030; J7040; J7042; J7050; J7060